=== PATIENT | male | born 1995 | race Caucasian/White ===

== ENCOUNTER 2022-03-04 16:13 | Emergency (ER) | payer SELFPAY ==
[2022-03-04 17:22] LABS: #Basophils 0.1 10x3/uL (0.0-0.2); #Eosinphils 0.2 10x3/uL (0.0-0.5); #Monocytes 1.2 10x3/uL (0.0-1.1); #Neutrophils 7.7 10x3/uL (1.5-8.4); %Basophils 0.6 % (0.0-2.0); %Eosinophils 1.5 % (0.0-6.0); %Lymphocytes 21.7 % (18.0-47.0); %Monocytes 9.9 % (0.0-10.0); Hemoglobin 15.5 g/dL (13.5-17.5); Mean Corpuscular HGB CONC 34.7 g/dL (32.0-36.0); Mean Corpuscular Hemoglobin 30.3 pg (27.0-33.0); Mean Corpuscular Volume 87.5 fl (81.2-95.1); Mean Platelet Volume 10.1 fl (7.4-10.4); Platelet Count 341 10x3/uL (150-450); RBC Distribution Width 12.3 % (11.5-14.5); Red Blood Cell (RBC) Count 5.11 10x6/uL (4.32-5.72); White Blood Cell (WBC) Count 11.7 10x3/uL (3.5-10.5)
[2022-03-04 17:33] LABS: ALT (SGPT) 36 U/L (8-55); AST (SGOT) 27 U/L (5-34); Albumin 4.6 g/dL (3.5-5.0); Alkaline Phosphatase 67 U/L (40-110); Anion Gap 14 mmol/L (10-20); BUN (Urea Nitrogen) 18 mg/dL (8.9-20.6); Bilirubin, Total 0.3 mg/dL (0.2-1.2); Calc. Creatinine Clearance 0 mL/min (70-130); Calcium 9.1 mg/dL (7.8-10.44); Carbon Dioxide 25 mmol/L (22-29); Chloride 105 mmol/L (98-107); Estimated GFR 110; Globulin 3.1 g/dL (2.4-3.5); Glucose 95 mg/dL (70-105); Lipase 22 U/L (8-78); Potassium 4.8 mmol/L (3.5-5.1); Protein, Total 7.7 g/dL (6.0-8.3); Sodium 139 mmol/L (136-145)
[2022-03-04] MEDS ORDERED: Ketorolac Tromethamine 30 MG/ML VIAL ONE (18:07)
[2022-03-04] MEDS ORDERED: Cyclobenzaprine 10 MG TAB ONE (18:07)
== END 2022-03-04 17:49 | disposition home or self-care (01) ==
LOC: CSHERS 16:13
DX: R07.81 Pleurodynia (principal); M62.838 Other muscle spasm; I48.91 Unspecified atrial fibrillation
CPT/HCPCS: 36415; 71045; 80053; 83690; 85025; 96372; J1885